=== PATIENT | female | born 1980 | race African-American/Black ===

== ENCOUNTER 2018-01-23 15:15 | Emergency (ER) | payer MEDICARE, OTHER ==
[2018-01-23] MEDS: METOCLOPRAMIDE 10 MG TAB PO (15:52)
[2018-01-23] MEDS: ACETAMINOPHEN 325 MG TAB PO (15:52)
[2018-01-23] MEDS: IBUPROFEN 200 MG TAB PO (15:52)
[2018-01-23 16:01] LABS: URINE BLOOD (Dip) POC Trace-lysed (NEGATIVE); URINE GLUCOSE (Dip) POC Negative (NEGATIVE); URINE KETONES (Dip) POC Negative (NEGATIVE); URINE LEUKOCYTE EST (Dip) POC 1+ (NEGATIVE); URINE NITRITE (Dip) POC Negative (NEGATIVE); URINE TOTAL PROTEIN POC Negative (NEGATIVE)
[2018-01-23 16:01] LABS: URINE PH (Dip) POC 6.5 (5.0-8.5)
== END 2018-01-23 16:24 | disposition home or self-care (01) ==
LOC: FTE 15:15
DX: G43.009 Migraine without aura, not intractable, without status migrainosus (principal); J45.909 Unspecified asthma, uncomplicated
CPT/HCPCS: 81003; 81025; 99283

== ENCOUNTER 2018-12-27 17:07 | Emergency (ER) | payer SELFPAY, OTHER, MEDICARE | END 2018-12-27 20:00 | disposition left against medical advice (07) | LOC: FTE 20:00 | DX: Z53.21 Procedure and treatment not carried out due to patient leaving prior to being seen by health care provider (principal) ==

== ENCOUNTER 2018-12-28 12:07 | Emergency (ER) | payer MEDICARE, OTHER | END 2018-12-28 14:41 | disposition home or self-care (01) | LOC: FTE 14:41 | DX: R05 Cough (principal); J45.909 Unspecified asthma, uncomplicated | CPT/HCPCS: 99283 ==

== ENCOUNTER 2019-01-19 10:45 | Emergency (ER) | payer MEDICARE, OTHER ==
[2019-01-19] MEDS: METHYLPREDNISOLONE 125 MG INJ IM (11:26)
[2019-01-19] MEDS: IPRATROPIUM (NEB) 0.5 MG/2.5 ML AMP NEB (11:35)
[2019-01-19] MEDS: ALBUTEROL 0.083% (NEB) 2.5 MG/3 ML AMP NEB (11:35)
== END 2019-01-19 13:05 | disposition home or self-care (01) ==
LOC: FTE 10:45
DX: R05 Cough (principal); J45.909 Unspecified asthma, uncomplicated
CPT/HCPCS: 94664; 96372; 99284-25

== ENCOUNTER 2019-03-03 08:25 | Emergency (ER) | payer MEDICARE, OTHER ==
[2019-03-03] MEDS: DEXAMETHASONE 10 MG/ML 1 ML INJ PO (08:55)
== END 2019-03-03 09:13 | disposition home or self-care (01) ==
LOC: FTE 08:25
DX: J40 Bronchitis, not specified as acute or chronic (principal)
CPT/HCPCS: 99283; J1100

== ENCOUNTER 2019-03-22 11:02 | Emergency (ER) | payer MEDICARE, OTHER ==
[2019-03-22] MEDS: KETOROLAC 30 MG INJ IM (12:04)
== END 2019-03-22 12:26 | disposition home or self-care (01) ==
LOC: FTE 11:02
DX: M54.5 Low back pain (principal); G89.29 Other chronic pain; R05 Cough
CPT/HCPCS: 81025; 96372; 99284-25

== ENCOUNTER → 2019-05-19 | Emergency (ER) | payer MEDICARE, OTHER ==
[2019-05-19 13:17] LABS: URINE BLOOD (Dip) POC Trace-lysed (NEGATIVE); URINE GLUCOSE (Dip) POC Negative (NEGATIVE); URINE KETONES (Dip) POC Negative (NEGATIVE); URINE LEUKOCYTE EST (Dip) POC Trace (NEGATIVE); URINE NITRITE (Dip) POC Negative (NEGATIVE); URINE TOTAL PROTEIN POC Negative (NEGATIVE)
[2019-05-19 13:35] LABS: URINE BLOOD (Dip) POC Trace-intact (NEGATIVE); URINE GLUCOSE (Dip) POC Negative (NEGATIVE); URINE KETONES (Dip) POC Negative (NEGATIVE); URINE LEUKOCYTE EST (Dip) POC Trace (NEGATIVE); URINE NITRITE (Dip) POC Negative (NEGATIVE); URINE TOTAL PROTEIN POC Negative (NEGATIVE)
== END | disposition home or self-care (01) ==
LOC: FTE 10:57
DX: N94.9 Unspecified condition associated with female genital organs and menstrual cycle (principal); J45.909 Unspecified asthma, uncomplicated
CPT/HCPCS: 81003; 81025; 99283